=== PATIENT | male | born 1940 ===

== ENCOUNTER 2022-04-17 12:03 | Outpatient (REF) | payer OTHER, SELFPAY ==
[2022-04-17 12:29] LABS: MANUAL DIFF FLAG NO
[2022-04-17 13:25] LABS: Basophils Percent Auto 0.6 % (0-2); Eosinophils Absolute Auto 0.1 X10*3/uL (0.0-0.4); Eosinophils Percent Auto 1.3 % (0-4); Hematocrit 43.4 % (42.0-52.0); Hemoglobin 14.2 g/dl (14.0-18.0); Imm Gran Abs Auto 0.02 X10*3/uL (0.00-0.03); Imm Gran Pct Auto 0.4 % (0.0-0.4); Lymphocytes Absolute Auto 1.3 X10*3/uL (1.2-4.9); Mean Corpuscular HGB Conc 32.7 g/dl (31.0-36.0); Mean Corpuscular Hemoglobin 28.9 pg (27.0-33.0); Mean Corpuscular Volume 88.2 fL (80.0-98.0); Mean Platelet Volume 10.9 fL (9.4-12.4); Monocytes Absolute Auto 0.5 X10*3/uL (0.1-1.2); Monocytes Percent Auto 10.4 % (2-11); Neutrophils Absolute Auto 2.8 x10*3/uL (2.0-8.3); Neutrophils Percent Auto 59.3 % (45-73); Platelet Count 202 X10*3/uL (160-400); Red Blood Count 4.92 X10*6/uL (4.60-5.80); Red Cell Distribution Width 13.7 % (11.0-16.0); White Blood Count 4.8 X10*3/uL (4.8-10.8)
[2022-04-17 13:52] LABS: Hemoglobin A1c % > 14.0 %
[2022-04-17 14:17] LABS: Alanine Aminotransferase 40 U/L (0-40); Albumin Level 3.5 g/dL (3.5-5.0); Alkaline Phosphatase 355 U/L (39-117); Anion Gap 16 (12-20); Aspartate Amino Transferase 52 U/L (5-37); Bilirubin Total 0.7 mg/dL (0.0-1.0); Blood Urea Nitrogen 36 mg/dL (9-16); Carbon Dioxide 22 mmol/L (22-29); Chloride 98 mmol/L (96-108); Estimated Glomerular Filt Rate 35; Glucose Random 465 mg/dL (60-115); Potassium 5.1 mmol/L (3.3-5.1); Sodium 131 mmol/L (135-145); Total Protein 8.9 g/dL (6.5-8.0)
== END 2022-04-17 12:04 | disposition home or self-care (01) ==
LOC: HO.LAB 12:03
PROVIDERS: Visit Provider Internal Medicine
DX: C61 Malignant neoplasm of prostate (principal); E11.65 Type 2 diabetes mellitus with hyperglycemia; I25.5 Ischemic cardiomyopathy
CPT/HCPCS: 36415; 80053; 83036; 85025